=== PATIENT | female | born 1970 | race Caucasian/White ===

== ENCOUNTER 2025-03-17 08:53 | Outpatient (CLI) | payer BC, SELFPAY ==
[2025-03-17 13:36] LABS: Microscopic, Urine URINE MICROSCOPIC (MICROSCOPIC)
[2025-03-17 14:07] LABS: Hematocrit 39.3 % (37.0-47.0); Hemoglobin 13.0 g/dL (12.2-16.2); Immature Granulocytes % 0.4 %; Mean Corpuscular HGB Conc 33.1 g/dL (31.8-35.4); Mean Corpuscular Hemoglobin 30.3 pg (27.0-31.2); Mean Corpuscular Volume 91.6 fl (81-99); Nucleated Red Blood Cells % 0 %; Platelet Count 285 K/mm3 (142-424); Red Blood Count 4.29 M/mm3 (4.20-5.40); Red Cell Distribution Width-SD 43.4 fL; White Blood Count 5.6 K/mm3 (4.8-10.8)
[2025-03-17 14:39] LABS: Albumin Level 4.4 g/dl (3.5-5.0); Chloride 102 mmol/L (98-107); Potassium 3.9 mmoL/L (3.5-5.1); Sodium 136 mmol/L (136-145)
[2025-03-17 14:41] LABS: Blood Urea Nitrogen 15 mg/dl (7-17); Creatinine,Serum 0.70 mg/dl (0.52-1.04); Estimated Glomerular Filt Rate 88 ml/min (>60); GFR (African American) 106 ML/MIN (>60)
[2025-03-17 14:42] LABS: Alanine Aminotransferase 15 U/L (12-78); Albumin/Globulin Ratio 1.8 (1.1-1.8); Alkaline Phosphatase 83 U/L (38-126); Anion Gap 12.9 mEq/L (5-15); Aspartate Amino Transferase 23 U/L (14-36); Bilirubin,Total 0.7 mg/dl (0.2-1.3); Calcium 8.8 mg/dl (8.4-10.2); Carbon Dioxide 25 mmol/L (22.0-30.0); Cholesterol 228 mg/dl (140-200); Globulin 2.4 g/dL (1.3-3.2); Glucose 103 mg/dl (74-100); HDL Cholesterol 44 mg/dl (40-60); Iron 134 ug/dL (37-170); Magnesium 2.2 mg/dl (1.6-2.3); Phosphorous 3.5 mg/dl (2.5-4.5); Total Protein,Serum 6.8 g/dl (6.3-8.2); Triglycerides 157 mg/dl (30-150)
[2025-03-17 14:57] LABS: 25-OH Vitamin D, Total 34.3 ng/mL (30-100); Free T4 (Free Thyroxine) 0.95 ng/dl (0.78-2.19)
[2025-03-17 15:04] LABS: Total Iron Binding Capacity 262 ug/dL (265-497)
[2025-03-17 15:18] LABS: Thyroid Stimulating Hormone 2.28 uIU/mL (0.465-4.68)
[2025-03-17 15:22] LABS: Ferritin 81.4 ng/ml (11.1-264)
[2025-03-17 15:31] LABS: Hepatitis C Ab Qual. W/ RFX NEGATIVE (Negative)
[2025-03-17 16:22] LABS: Vitamin B12 279 pg/mL (239-931)
[2025-03-17 17:57] LABS: Hemoglobin A1C 5.7 % (4.0-6.0)
[2025-03-17 19:07] LABS: Bilirubin,Urine Negative (Negative); Color,Urine YELLOW (Yellow); Glucose,Urine (UA) Negative (Negative); Ketones,Urine Negative (Negative); Leukocyte Esterase,Urine TRACE (Negative); PH,Urine 6.0 (5.0-8.5); Protein,Urine Negative (Negative); Specific Gravity, Urine 1.020 (1.005-1.030); Urobilinogen,Urine 0.2 EU/dl (0.2)
[2025-03-17 19:24] LABS: Amorphous Sediment,Urine Trace /lpf
--- OUTSIDE RECORDS SUMMARY | 2025-03-18 13:46 | XMS_ITS | Encounter Summary ---
Author Organization Healthcare Address [address] [place] [address] Care Team Providers Care Pinion Polisher Name Role Phone Tamela Roger MD Primary Care Provider Encounter Details Date Type Department Care Team (Late st Contact Info) Description 02/10/2021 Outside Procedure External Location [address] [place] [address] Tamela Roger MD [address] [place] [phone] Social History Tobacco Use Types Packs/Day Years Used Date Smoking Tobacco: Former Smokeless Tobacco: Never PHQ-2 Answer Date Recorded Patient Health Questionnaire-2 Score 0 02/10/2021 Comments Unknown Sex and Gender Information Value Date Recorded Sex Assigned at Not on file Legal Sex Female 8:45 PM EDT Gender Identity Not on file Sexual Orientation Not on file COVID-19 Exposure Response Date Recorded In the last month, have you been in contact with someone who was confirmed or suspected to have Coronavirus / COVID-19? No / Unsure 02/10/2021 9:39 AM EDT documented as of this encounter Functional Status * Over the past 2 weeks, how often have you been bothered by any of the following problems? Question Answer Date of Assessment Author Little interest or pleasure in doing things Not at all 02/10/2021 9:52 AM EDT Brittney Loja Feeling down, depressed, or hopeless Not at all 02/10/2021 9:52 AM EDT Brittney Loja Patient Health Questionnaire -2 Score 0 02/10/2021 9:52 AM EDT Brittney Loja documented as of this encounter Plan of Treatment Upcoming Encounters Date Type Department Care Team (Late st Contact Info) Description 06/17/2025 10:30 AM EST Office Visit [facility] [address] [facility], [address] [place] [address] Nida King W, CALCULATOR OPERATOR [address] [place] [address] documented as of this encounter Procedures Procedure Name Priority Date/Time Associated Diagnosis Comments MAMMOGRAPHY BREAST SCREENING TOMOSYNTHESIS BILATERAL 02/10/2021 12:44 PM EDT documented in this encounter Results * Mammography Breast Screening Tomosynthesis Bilateral (02/10/2021 12:44 PM EDT) Anatomical Region Laterality Modality Breast Bilateral Mammography 02/10/2021 12:4 4 PM EDT Narrative 02/12/2021 6:44 [place] [address] Name: CARMEN VIEIRA Exam Date: 02/10/2021 : 1970 Age 50 Gender: F Physician: ATMELA HORN Facility: [facility] Facility HSV: Outpatient Exam: [facility] MAMMO W/CAD BILAT Bilateral digital screening mammogram with CAD and with breast tomosynthesis Findings: Comparison dates are 10/19/19 and 10/09/18. Tissue is partially dense and partially fatty. There are no new or suspicious densities. There are no clusters of calcifications. There have been no significant changes. Impression: BI-RADS 1, negative. Recommendation is for yearly follow-up mammography. This patient will be sent a letter from the mammography department with their mammography results. Dictated By: SANJU FELIPE Transcribed By: kathie schneider Transcribed On: 02/10/2021 1:53 PM Electronically signed by: SANJU FELIPE 02/12/2021 Thank you for referring CARMEN VIEIRA to [facility]. Legally authenticated by DESTINEE BILLS 2021-02-12 06:30:09 Procedure Note Provider, Orlando Wheeler - 02/12/2021 [id number] [place] [address] Name: CARMEN VIEIRA Exam Date: 02/10/2021 : 1970 Age 50 Gender: F Physician: TAMELA HORN Facility: [facility] Facility HSV: Outpatient Exam: [facility] MAMMO W/CAD BILAT Bilateral digital screening mammogram with CAD and with breasttomosynthesis Findings: Comparison dates are 10/19/19 and 10/09/18. Tissue is partiallydense and partially fatty. There are no new or suspicious densities. There areno clusters of calcifications. There have been no significant changes. Impression: BI-RADS 1, negative. Recommendation is for yearly follow-up mammography. This patient will be sent a letter from the mammography department withtheir mammography results. Dictated By: SANJU FELIPE Transcribed By: kathie schneider Transcribed On: 02/10/2021 1:53 PM Electronically signed by: SANJU FELIPE 02/12/2021 Thank you for referring CARMEN VIEIRA to [facility]. Legally authenticated by DESTINEE BILLS 2021-02-12 06:30:09 Tamela Roger MD IMG BI PROCEDURES Final Result documented in this encounter Visit Diagnoses Not on filedocumented in this encounter Care Teams Pinion Polisher Relationship Specialty Start Date End Date Tamela Roger MD [address] [place] [phone] PCP - General 12/23/20 documented as of this encounter
--- OUTSIDE RECORDS SUMMARY | 2025-03-18 13:46 | XMS_ITS | Clinical Summary ---
Author Organization [facility] Address [address] [place] [address] Care Team Providers Care Child Specialist Name Role Phone Tamela Roger MD Primary Care Provider [phone] Allergies Active Allergy Reactions Criticality Noted Date Comments Lisinopril Cough Low 05/23/2022 Medications loratadine (Claritin) 10 MG tablet Take 1 tablet (10 mg) by mouth 1 (one) time each day. Active simvastatin (Zocor) 20 MG tabletIndications: Mixed hyperlipidemia Take 1 tablet (20 mg) by mouth 1 (one) time each day. 90 tablet 3 08/14/19 25 Active Additional Information Patient taking differently: 40 mgOral Daily, Morning, Reported on 11/13/2024 ergocalciferol 1.25 MG (24293 UT) capsule Take 1 capsule by mouth 1 (one) time per week. 10/27/19 25 Active metoprolol succinate XL (Toprol-XL) 25 MG 24 hr tabletIndications: Frequent PVCs Take 1 tablet by mouth daily. Do not crush or chew. 90 tablet 3 12/22/19 25 026 Active losartan (Cozaar) 25 MG tabletIndications: Essential hypertension, benign Take 1 tablet by mouth daily. 90 tablet 3 12/22/19 25 026 Active Active Problems Problem Noted Date Diagnosed Date Arthrodesis status 06/11/2024 Bilateral foot pain 01/02/2024 Plantar fasciitis of left foot 01/02/2024 Plantar fasciitis of right foot 01/02/2024 Hallux rigidus, acquired, unspecified laterality 01/02/2024 Frequent PVCs 11/29/2022 Routine general medical exam ination at a health care facility 05/23/2022 Mixed hyperlipidemia 05/23/2022 Dry cough 05/23/2022 Hypertension 06/03/2019 Resolved Problems Problem Noted Date Diagnosed Date Resolved Date Palpitations 10/23/2021 05/23/2022 Abnormal mammogram 10/20/2019 Encounters Date Type Department Care Team Description 12/21/2024 [facility] [place] [address], [address] [place] [address] Damaris Barth, RN Frequent PVCs; Essential hypertension, benign from Last 3 Months Immunizations Immunization Administration Dates Next Due Hep B, Adolescent or Pediatric 03/17/2020 Hep B, adult 08/18/2020,04/15/2020,09/30/2015 Influenza, injectable, quadr ivalent, preservative free 07/07/2019 Moderna COVID-19 Vaccine (Re d Cap) 12+ years 12/16/2020,11/18/2020 Tdap 08/18/2020,09/30/2015 Family History Medical History Relation Name Comments Miscarriages / Stillbirths Daughter Tamanna Hyperlipidemia Father Diabetes Maternal Grandfather Joe Ca Hearing loss Maternal Grandfather Joe Ca Heart disease Maternal Grandfather Joe Ca Arthritis Maternal Grandmother Amie Ca Hypertension Mother Miscarriages / Stillbirths Mother's Sister Aunt Gerda Colon cancer Paternal Grandmother Relation Name Status Comments Daughter Tamanna Father Maternal Grandfather Joe Ca Maternal Grandmother Amie Ca Mother Mother's Sister Aunt Gerda Paternal Grandmother Social History Tobacco Use Types Packs/Day Years Used Date Smoking Tobacco: Former Cigarettes Q uit: 08/12/1995 Passive Smoke Exposure: Past Smokeless Tobacco: Never Tobacco Cessation:Counseling Given: Not Answered Alcohol Use Standard Drinks/Week Comments Not Currently 0 (1 standard drink = 0.6 oz pur e alcohol) Humiliation, Afraid, Rape, and Kick questionnair e Answer Date Recorded Within the last year, have y ou been afraid of your partner or ex-partner? No 10/12/2023 Within the last year, have y ou been humiliated or emotionally abused in other ways by your partner or ex-partner? No Within the last year, have y ou been kicked, hit, slapped, or otherwise physically hurt by your partner or ex-partner? No 10/12/2023 Within the last year, have y ou been raped or forced to have any kind of sexual activity by your partner or ex-partner? No 10/12/2023 PHQ-2 Answer Date Recorded Patient Health Questionnaire-2 Score 0 11/13/2024 Hunger Vital Sign Answer Date Recorded Within the past 12 months, y ou worried that your food would run out before you got the money to buy more. Never true 10/12/19 24 Within the past 12 months, t he food you bought just didn't last and you didn't have money to get more. Never true 10/12/2023 PRAPARE - Transportation Answer Date Re corded In the past 12 months, has l ack of transportation kept you from medical appointments or from getting medications? No 09/2023 In the past 12 months, has l ack of transportation kept you from meetings, work, or from getting things needed for daily living? No 10/12/2023 Housing Stability Vital Sign Answer Yazan e Recorded In the last 12 months, was t here a time when you were not able to pay the mortgage or rent on time? No 10/12/2023 In the last 12 months, how many places have you lived? 2 10/12/2023 In the last 12 months, was t here a time when you did not have a steady place to sleep or slept in a alf (including now)? No 10/12/2023 PHQ-9 Answer Date Recorded Patient Health Questionnaire-9 Score 0 11/13/2024 Utilities Answer Date Recorded In the past 12 months has th e electric, gas, oil, or water company threatened to shut off services in your home? No 10/12/2023 PHQ-2A Answer Date Recorded Patient Health Questionnaire-2 Score 0 10/19/2022 Comments No Sex and Gender Information Value Date Recorded Sex Assigned at Not on file Legal Sex Female 8:45 PM EDT Gender Identity Not on file Sexual Orientation Not on file Last Filed Vital Signs Vital Sign Reading Time Taken Comments Blood Pressure 128/84 11/13/2024 9:27 AM EDT Pulse 87 11/13/2024 9:27 AM EDT Temperature 36.8 C (98.3 F) 07/16/2024 10:57 AM EST Respiratory Rate 16 05/13/2024 4:05 PM EDT Oxygen Saturation 99% 08/14/2024 2:14 PM EST Inhaled Oxygen Concentration - - Weight 75.8 kg (167 lb) 11/13/2024 9:27 AM EDT Height 160 cm (5' 3 ) 11/13/2024 9:27 AM EDT Body Mass Index 29.58 11/13/2024 9:27 AM EDT Plan of Treatment Upcoming Encounters Date Type Department Care Team (Late st Contact Info) Description 06/17/2025 10:30 AM EST Office Visit [facility] [place] [address], [address] [place] [address] Nida King, BROADCAST METEOROLOGIST [address] [place] [address] Health Maintenance Due Date Last Done Comments [facility]-HIV Screening 1972 [facility]-Hepatitis C Screening 1972 [facility]-Infant/Child/Adol SDOH Screenings 1972 [facility]- SDOH Screenings 1990 [facility]-Adult SDOH Screenings 1990 CT Colonography 2017 Colonoscopy 2017 FIT 2017 FOBT 2017 Sigmoidoscopy 2017 [facility]-Pneumococcal Vaccine: 50+ Years (1 of 1 - PCV) 2022 [facility]-Pap Smear 02/11/2024 02/10/2021, 09/12, 12/12/2015 [id number] Vaccine ( season) 2024 12/16/2020, 11/18/2020 [facility]-Influenza Vaccine (#1) 2025 07/07/2019 [facility]-Breast Cancer Screening 06/24/202506/12, 03/12/2022, 02/10/2021, Additional history exists [facility]-Depression Screening 11/13/2025 11/13/2024, 0 11/2024 [facility]-Cervical Cancer Screening 02/10/2026 [facility]-HPV/Cotest 02/10/2026 02/10/2021, 09/2020, 09/29/2018, Additional history exists FIT-DNA 10/30/2026 10/31/2023, 09/09/2020 [facility]-Colorectal Cancer Screening 10/30/2026 [facility]-DTaP,Tdap,and Td Vaccines (3 - Td or Tdap) 08/18/2030 08/18/2020, 09/30/2015 [facility]-Hepatitis B Vaccines Completed 021, 04/15/2020, 03/17/2020, Additional history exists [facility]-Zoster Vaccines Completed 08/03/2024, [facility]-Diabetes: Hemoglobin A1C Discontinued 10/21/2024, 10/16/2023, 05/23/2022, Additional history exists [facility]-Obesity Intervention Completed 025, 08/14/2024, 07/16/2024, Additional history exists HPV Vaccines Aged Out No longer eligi ble based on patient's age to complete this topic [facility]-HIB Vaccines Aged Out No longer e ligible based on patient's age to complete this topic [facility]-Hepatitis A Vaccines Aged Out No longer eligible based on patient's age to complete this topic [facility]-IPV Vaccines Aged Out No longer e ligible based on patient's age to complete this topic [facility]-Rotavirus Vaccines Aged Out No lo nger eligible based on patient's age to complete this topic Medical Devices Implanted Type Area Commercial Administrator Device Identifier Shelf Expiration Date Model / Serial / Lot Mtp Plate 0deg Medium Left - Sn/A - [id number] Implanted:Qty: 1 on 05/13/2024 by Eduardo Edge DPM at [facility] Left: [id number] 02 / N/A / Screw 3.5mm Minimonst Erin Shrtthrd Hdless 24mm - Sn/A - [id number] Implanted:Qty: 1 on 05/13/2024 by Eduardo Edge DPM at [facility] Left: [id number] / N/A / Screw 2.7mm R3con Locking Plate 12mm - Sn/A - [id number] Implanted:Qty: 1 on 05/13/2024 by Eduardo Edge DPM at [facility] Left: [id number] 12 / N/A / Screw 2.7mm R3con Locking Plate 18mm - Sn/A - [id number] Implanted:Qty: 1 on 05/13/2024 by Eduardo Edge DPM at [facility] Left: [id number] 18 / N/A / Screw 2.7mm R3con Locking Plate 16mm - Sn/A - [id number] Implanted:Qty: 1 on 05/13/2024 by Eduardo Edge DPM at [facility] Left: [id number] 16 / N/A / Screw 3.5mm R3con Nonlocking Plate 16mm - Sn/A - [id number] Implanted:Qty: 1 on 05/13/2024 by Eduardo Edge DPM at [facility] Left: [id number] 16 / N/A / Screw 3.5mm R3con Locking Plate 18mm - Sn/A - [id number] Implanted:Qty: 2 on 05/13/2024 by Eduardo Edge, DPM at [facility] Left: [id number] 18 / N/A / Procedures Procedure Name Priority Date/Time Associated Diagnosis Comments LAB COLOGUARD COLON CANCER SCREEN Routine 10/31/2023 9:50 PM EDT Screen for colon cancer HEMOGLOBIN A1C Routine 10/16/2023 8:38 AM EST Routine general medical examination at a [facility] care facility MAMMOGRAPHY BREAST SCREENING TOMOSYNTHESIS BILATERAL 06/24/2023 8:25 AM EST PAP TEST - CYTOLOGY Routine 02/10/2021 1 0:52 AM EDT Well woman exam from Last 3 Months or Most Recently Relevant to Health Maintenance Results * Cologuard?? colon cancer screening (10/31/2023 9:50 PM EDT) Cologuard Negative Negative 11/06/2023 6:37 PM EDT [facility] (CLIA #:[id number]) Comment: NEGATIVE TEST RESULT. A negative Cologuard result indicates a low likelihood that a colorectal cancer (CRC) or advanced adenoma (adenomatous polyps with more advanced pre-malignant features) is present. The chance that a person with a negative Cologuard test has a colorectal cancer is less than 1 in 1500 (negative predictive value >99.9%) or has an advanced adenoma is less than 5.3% (negative predictive value 94.7%). These data are based on a prospective cross-sectional study of 10,000 individuals at average risk for colorectal cancer who were screened with both Cologuard and colonoscopy. (Yumiko Grant et al, N Engl J Med 2014;370(14):7328-8630) The normal value (reference range) for this assay is negative. COLOGUARD RE-SCREENING RECOMMENDATION: Periodic colorectal cancer screening is an important part of preventive healthcare for asymptomatic individuals at average risk for colorectal cancer. Following a negative Cologuard result, the [place] Cancer Society and U.S. Multi-Society Task Force screening guidelines recommend a Cologuard re-screening interval of 3 years. References: [place] [employer] Guideline for Colorectal Cancer Screening: https://www.cancer.org/cancer/wdouf-pxkgdp-qhzbce/zjbnpiwhf-oveglspsi-qdjeouy/ac s-rec ommendations.html.; Jesse MONSON, Yesenia MCCORMACK, Yusef FarahK, Colorectal Cancer Screening: Recommendations for Physicians and Patients from the U.S. Multi-Society Task Force on Colorectal Cancer Screening , Am J Gastroenterology 2017; 112:8328-0141. TEST DESCRIPTION: Composite algorithmic analysis of stool DNA-biomarkers with hemoglobin immunoassay. Quantitative values of individual biomarkers are not reportable and are not associated with individual biomarker result reference ranges. Cologuard is intended for colorectal cancer screening of adults of either sex, 45 years or older, who are at average-risk for colorectal cancer (CRC). Cologuard has been approved for use by the U.S. FDA. The performance of Cologuard was established in a cross sectional study of average-risk adults aged 50-84. Cologuard performance in patients ages 45 to 49 years was estimated by sub-group analysis of near-age groups. Colonoscopies performed for a positive result may find as the most clinically significant lesion: colorectal cancer [4.0%], advanced adenoma (including sessile serrated polyps greater than or equal to 1cm diameter) [20%] or non- advanced adenoma [31%]; or no colorectal neoplasia [45%]. These estimates are derived from a prospective cross-sectional screening study of 10,000 individuals at average risk for colorectal cancer who were screened with both Cologuard and colonoscopy. (Yumiko Grant et al, N Engl J Med 2014;370(14):7045-5043.) Cologuard may produce a false negative or false positive result (no colorectal cancer or precancerous polyp present at colonoscopy follow up). A negative Cologuard test result does not guarantee the absence of CRC or advanced adenoma (pre-cancer). The current Cologuard screening interval is every 3 years. ([place] [employer] Society and U.S. Multi-Society Task Force). Cologuard performance data in a 10,000 patient pivotal study using colonoscopy as the reference method can be accessed at the following location: www.[employer]/results. Additional description of the Cologuard test process, warnings and precautions can be found at www.[employer].com. Stool specimen (specimen) 10/31/2023 9:50 PM EDT 11/02/2023 12:52 PM EDT us Tamela Roger MD LAB MOLECULAR DIAGNOSTICS [place] Final Result [facility] (CLIA #:[id number]) [address] [place] [address], * (ABNORMAL) Hemoglobin A1c (10/16/2023 8:38 AM EST) Hemoglobin A1c 5.8(H) <5.7 % 10/16/2023 4:01 PM EST [facility] Blood Venous blood specimen / Unknown Venipuncture / Unknown 10/16/2023 8:38 AM EST 10/16/2023 8:38 AM EST Narrative [facility] - 10/16/2023 4:01 PM EST HA1C Interpretive Data: Diagnosis of Diabetes: Diabetic > or = 6.5% Pre-diabetic 5.7 to 6.4% Non-diabetic < or = 5.6% Glycemic Targets for Type I and Type II Diabetics: Non- Adults <7.0% Adults <6.0% Children and Adolescents <7.5% Source: [place] [employer] Association. Standards of medical care in diabetes,2017. Diabetes Care.2017:40 (suppl 1):S1-S135. HbA1c assay performed by an ion-exchange chromatography method that is certified traceable to the DCCT. us Tamela Roger MD LAB BLOOD ORDERABLES Final Res ult Performing Organization Address City/State/[facility] [[email or web address]] Co de Phone Number [facility] [address] [place] [address] * Mammography Breast Screening Tomosynthesis Bilateral (06/24/2023 8:25 AM EST) Anatomical Region Laterality Modality Breast Bilateral Mammography 06/24/2023 8:25 AM EST Narrative 06/24/2023 5:22 PM EST [place] [id number] [place] [address] Name: CARMEN LEYVA Exam Date: 06/24/2023 : 1970 Age 52 Gender: F Physician: TAMELA HORN Facility: [facility] Facility HSV: Outpatient Exam: SHIRLEY SCRN MAMMO W/CAD BILAT MAMMOGRAM SCREENING BILATERAL HISTORY: Routine screening exam COMPARISON: March 12, 2022, February 10, 2021 TECHNIQUE: Standard digital 2-D views with 3-D tomosynthesis DENSITY: There are scattered fibroglandular densities of the breasts. FINDINGS: Benign calcifications. Increasing inferior medial right breast focal asymmetry. Scattered areas of focal asymmetry are noted. No suspicious calcifications or architectural distortion is present. IMPRESSION: Slightly increasing inferior medial right breast focal asymmetry. Additional spot compression views and possible ultrasound is recommended. BI-RADS 0: Incomplete, needs additional imaging evaluation RECOMMENDATION: Additional right breast imaging is required. Routine screening mammography for the left breast. CAD was utilized during interpretation. The patient will be sent a letter from the mammography department with their mammography results. Dictated By: Dahlia Jung Transcribed By: Dahlia Brandon Transcribed On: 06/24/2023 12:48 PM Electronically signed by: Dahlia Jung 06/24/2023 Thank you [facility]. Legally authenticated by PAVEL MARRUFO 2023-06-24 12:48:29 Procedure Note Provider, [facility] - 06/24/2023 [place] [address] Name: CARMEN LEYVA Exam Date: 06/24/2023 : 1970 Age 52 Gender: F Physician: TAMELA HORN Facility: [facility] Facility HSV: Outpatient Exam: SHIRLEY SCRN MAMMO W/CAD BILAT MAMMOGRAM SCREENING BILATERAL HISTORY: Routine screening exam COMPARISON: March 12, 2022, February 10, 2021 TECHNIQUE: Standard digital 2-D views with 3-D tomosynthesis DENSITY: There are scattered fibroglandular densities of the breasts. FINDINGS: Benign calcifications. Increasing inferior medial right breastfocal asymmetry. Scattered areas of focal asymmetry are noted. No suspicious calcifications or architectural distortion is present. IMPRESSION: Slightly increasing inferior medial right breast focalasymmetry. Additional spot compression views and possible ultrasound isrecommended. BI-RADS 0: Incomplete, needs additional imaging evaluation RECOMMENDATION: Additional right breast imaging is required. Routinescreening mammography for the left breast. CAD was utilized during interpretation. The patient will be sent a letter from the mammography department withtheir mammography results. Dictated By: Dahlia Jung Transcribed By: Dahlia Brandon Transcribed On: 06/24/2023 12:48 PM Electronically signed by: Dahlia Jung 06/24/2023 Thank you for referring [facility]. Legally authenticated by PAVEL MARRUFO 2023-06-24 12:48:29 us Tamela Roger MD IMG BI PROCEDURES Final Result * Pap Test (02/10/2021 10:52 AM EDT) Case Report Cytology Case: [id number] Authorizing Provider: Tamela Loza MD Collected: 02/10/2021 1052 Ordering Location: General acute hospital Received: 02/10/2021 1056 Medicine First Screen: Tati Pickering, CT Rescreen: Iman Bateman, BIPIN Specimen: ThinPrep Pap Test, Liquid-Based Cervical/Vaginal, CERVICAL/VAGINAL 02/16/2021 2:20 PM EDT [facility] Interpretation NEGATIVE FOR INTRAEPITHELIAL LESION OR MALIGNANCY 02/16/2021 2:20 PM EDT [facility] at 1420 EDT Other Findings Inflammatory change. Shift in aditi suggestive of bacterial vaginosis. 02/16/2021 2:20 PM EDT [facility] Specimen Adequacy Satisfactory for evaluation; endocervical/berry sformation zone component present. Slide scanned and imaged by [email or web address] ThinPrep Imaging System with manual review of all selected roldan. Slide imaged and selected 22 roldan reviewed then full manual screening. 02/16/2021 2:20 PM EDT [facility] Cervical cytology is a screening test primarily for squamous cancers and precursors and has associated false negative and positive results. New technologies such as liquid based sampling may decrease but will not eliminate all false negative results. Regular screening and follow-up of unexplained clinical signs and symptoms are recommended to minimize false negative results. Please see the ASCCP website (www.asccp.org)fo r followup recommendations. If HPV testing was requested, correlation with the results is suggested (please call Microbiology at [phone] for results). 02/16/2021 2:20 PM EDT [facility] Menstrual Status Cyclic 02/17/20 2:20 PM EDT [facility] History of Hysterectomy Not Applicable 02/16/2021 2:20 PM EDT [facility] Contraceptive History Not Applicable 02/16/2021 2:20 PM EDT [facility] Last Menstrual Period 01/27/2021 02/16/2021 2:20 PM EDT [facility] Screening Type Routine Screen 2020 2:20 PM EDT [facility] High Risk? No 02/16/2021 2:20 PM EDT [facility] HPV Testing Requested? Request HPV Testing Regardless of Pap Test Findings 02/16/2021 2:20 PM EDT [facility] Previous Cancer History No 02/16/2021 2:20 PM EDT [facility] Swab Vaginal and cervical cytologic material / Unknown Non-blood Collection / Unknown 02/10/2021 10:52 AM EDT 02/10/2021 10:56 AM EDT Tamela Roger MD LAB CYTOLOGY ORDERABLES Final Result Performing Organization Address City/State/[facility] [[email or web address]] Co de Phone Number [facility] [address] [place] [phone] from Last 3 Months or Most Recently Relevant to Health Maintenance Insurance [employer]THE[employer] Care Teams Child Specialist Relationship Specialty Start Date End Date Tamela Roger MD [address] [place] [phone] [facility] - General 12/23/20
--- OUTSIDE RECORDS SUMMARY | 2025-03-18 13:46 | XMS_ITS | Encounter Summary ---
Author Organization [facility] Address [address] [place] [address] Care Team Providers Care Spray Gun Repairer Helper Name Role Phone Tamela Roger MD Primary Care Provider [phone] Encounter Details Date Type Department Care Team (Late Contact Info) Description 03/12/2022 Outside Procedure External Location [address] [place] [address] Tamela Roger MD [address] [place] [phone] Social History Tobacco Use Types Packs/Day Years Used Date Smoking Tobacco: Former Cigarettes Q uit: 1999 Smokeless Tobacco: Never PHQ-2 Answer Date Recorded Patient Health Questionnaire-2 Score 0 02/10/2021 Comments Unknown Sex and Gender Information Value Date Recorded Sex Assigned at Not on file Legal Sex Female 8:45 PM EDT Gender Identity Not on file Sexual Orientation Not on file documented as of this encounter Plan of Treatment Upcoming Encounters Date Type Department Care Team (Late Contact Info) Description 06/17/2025 10:30 AM EST Office Visit [facility] [address], [address] [place] [address] Nida King, DIRECTOR OF HOME HEALTH SERVICES [address] [place] [address] documented as of this encounter Procedures Procedure Name Priority Date/Time Associated Diagnosis Comments MAMMOGRAPHY BREAST SCREENING TOMOSYNTHESIS BILATERAL 03/12/2022 8:07 AM EDT documented in this encounter Results * Mammography Breast Screening Tomosynthesis Bilateral (03/12/2022 8:07 AM EDT) Anatomical Region Laterality Modality Breast Bilateral Mammography 03/12/2022 8:07 AM EDT Narrative 03/15/2022 4:48 [place] [address] Name: CARMEN LEYVA Exam Date: 03/12/2022 : 1970 Age 51 Gender: F Physician: TAMELA HORN Facility: [facility] Facility HSV: Outpatient Exam: SHIRLEY SCRN MAMMO W/CAD BILAT MAMMOGRAM SCREENING BILATERAL WITH TOMOSYNTHESIS HISTORY: Routine screening exam COMPARISON: February 10, 2021 FINDINGS: Standard views were obtained. There are scattered fibroglandular densities. Benign-appearing calcifications are present. No mass, suspicious calcifications or architectural distortion is present. IMPRESSION: No mammographic evidence of malignancy. BI-RADS 2: Benign RECOMMENDATION: Annual mammography CAD was utilized during interpretation. The patient will be sent a letter from the mammography department with their mammography findings. Dictated By: Remberto Johnston Transcribed By: Remberto Johnston Transcribed On: 03/15/2022 4:36 PM Electronically signed by: Remberto Johnston 03/15/2022 Thank you for referring CARMEN LEYVA to [facility]. Legally authenticated by POPE REMBERTO Solo 2022-03-15 16:36:50 Procedure Note Provider, [facility] - 03/15/2022 [place] [address] Name: CARMEN LEYVA Exam Date: 03/12/2022 : 1970 Age 51 Gender: F Physician: TAMELA HORN Facility: [facility] Facility HSV: Outpatient Exam: SHIRLEY SCRN MAMMO W/CAD BILAT MAMMOGRAM SCREENING BILATERAL WITH TOMOSYNTHESIS HISTORY: Routine screening exam COMPARISON: February 10, 2021 FINDINGS: Standard views were obtained. There are scatteredfibroglandular densities. Benign-appearing calcifications are present. No mass,suspicious calcifications or architectural distortion is present. IMPRESSION: No mammographic evidence of malignancy. BI-RADS 2: Benign RECOMMENDATION: Annual mammography CAD was utilized during interpretation. The patient will be sent a letter from the mammography department withtheir mammography findings. Dictated By: Remberto Johnston Transcribed By: Remberto Johnston Transcribed On: 03/15/2022 4:36 PM Electronically signed by: Remberto Johnston 03/15/2022 Thank you for referring CARMEN LEYVA to [facility]. Legally authenticated by POPE REMBERTO Solo 2022-03-15 16:36:50 Tamela Roger MD IMG BI PROCEDURES Final Result documented in this encounter Visit Diagnoses Not on filedocumented in this encounter Care Teams Spray Gun Repairer Helper Relationship Specialty Start Date End Date Tamela Roger MD [address] [place] [id number] PCP - General 12/23/20 documented as of this encounter
--- OUTSIDE RECORDS SUMMARY | 2025-03-18 13:46 | XMS_ITS | Clinical Summary ---
Author Organization [facility] Address [address] [place] [address] Care Team Providers Care Patient Resource Specialist Name Role Phone Fernanda Donohue APRN Primary Care Provider [phone] Allergies Active Allergy Reactions Criticality Noted Date Comments Lisinopril Cough Low 05/23/2022 Medications loratadine (Claritin) 10 MG tablet Take 10 mg by mouth 1 (one) time each day. Active losartan (Cozaar) 25 MG tablet Take 25 mg by mouth 1 (one) time each day. 08/14/2024 6 Active metoprolol succinate XL (Toprol-XL) 100 MG 24 hr tablet Take 100 mg by mouth 1 (one) time each day. 08/14/2024 6 Active simvastatin (Zocor) 40 MG tablet Take 1 tablet by mouth every night for 180 days. 90 tablet 1 12/21/2024 5 Active ergocalciferol (Vitamin D2) 1.25 MG (51974 UT) capsuleIndicati ons:Vitamin D deficiency, not otherwise specified TAKE 1 CAPSULE BY MOUTH ONCE WEEKLY 13 capsule 3 02/08/2025 Active Active Problems Problem Noted Date Diagnosed Date Obesity, class 1 08/19/2024 Arthrodesis status 06/11/2024 Acquired hallux rigidus 01/02/2024 Pain in both feet 01/02/2024 Plantar fascial fibromatosis 01/02/2024 Multiple premature ventricular complexes 023 Dry cough 05/23/2022 Mixed hyperlipidemia 05/23/2022 Routine general medical exam ination at a health care facility 05/23/2022 Hypertension 06/03/2019 Encounters Date Type Department Care Team Description 02/06/2025 Refill [facility] - [address] [place] [address] Fernanda Donohue APRN Vitamin D deficiency, not otherwise specified 12/21/2024 Orders Only [facility] - [address] [place], [place] [id number] Fernanda Donohue APRN Vitamin D deficiency, not otherwise specified; Mixed hyperlipidemia from Last 3 Months Immunizations Immunization Administration Dates Next Due Hep B, Adolescent or Pediatr ic (Engerix B, Recombivax) 03/17/2020 Hep B, adult (Engerix b, Recombivax) 08/18/2020, 04/15/2020,09/30/2015 Influenza, quadrivalent PF ( fluarix, Afluria, Flulaval, Fluzone) 07/07/2019 Tdap 08/18/2020,09/30/2015 Zoster, Recombinant 08/03/2024,06/05/2024 Family History Medical History Relation Name Comments Miscarriages / Stillbirths Daughter Tamanna Simmons Cancer Father's Sister Ana Paez Diabetes Maternal Grandfather Joe Ca Heart disease Maternal Grandfather Joe Ca Hypertension Mother Tamica Paez Hearing loss Paternal Grandfather oJe Ca Relation Name Status Comments Hair Simmons Father's Sister Ana Paez Maternal Grandfather Joe Ca Mother Tamica Paez Paternal Grandfather Joe Ca Social History Tobacco Use Types Packs/Day Years Used Date Smoking Tobacco: Former Cigarettes Smokeless Tobacco: Never Tobacco Cessation:Counseling Given: Not Answered Alcohol Use Standard Drinks/Week Comments Not Currently 0 (1 standard drink = 0.6 oz pur e alcohol) [facility] Utilities Answer Date Recorded In the past 12 months has [employer], gas, oil, or water [employer]tr[employer] threatened to shut off services in your home? No 10/10/2024 Overall Financial Resource Strain (CARDIA) Answe r Date Recorded How hard is it for you to pa y for the very basics like food, housing, medical care, and heating? Not hard at all 10/10/2024 Hunger Vital Sign Answer Date Recorded Within the past 12 months, y ou worried that your food would run out before you got the money to buy more. Never true 10/11/19 25 Within the past 12 months, t he food you bought just didn't last and you didn't have money to get more. Never true 10/10/2024 PRAPARE - Transportation Answer Date Re corded In the past 12 months, has l ack of transportation kept you from medical appointments or from getting medications? No 08/2024 In the past 12 months, has l ack of transportation kept you from meetings, work, or from getting things needed for daily living? No 10/10/2024 Housing Stability Vital Sign Answer Yazan e Recorded In the last 12 months, was t here a time when you were not able to pay the mortgage or rent on time? No 10/10/2024 In the past 12 months, how m any times have you moved where you were living? 0 10/10/2024 At [facility] time in the [facility], were you homeless or living in a chcf (including now)? No 10/10/2024 Depression Answer Date Recorded PHQ-2 Total Score 0 10/10/2024 Interpersonal Safety Answer Date Record ed How often does anyone, jeb henry family and friends, physically hurt you? Never 10/10/2024 How often does anyone, jeb henry family and friends, threaten you with harm? Never 10/10/2024 Comments Unknown Sex and Gender Information Value Date Recorded Sex Assigned at Not on file Legal Sex Female 12:20 PM EST Gender Identity Not on file Sexual Orientation Not on file Last Filed Vital Signs Vital Sign Reading Time Taken Comments Blood Pressure 120/84 10/12/2024 9:02 AM EST Pulse 73 10/12/2024 9:02 AM EST Temperature 37 C (98.6 F) 10/12/2024 9:02 AM EST Respiratory Rate - - Oxygen Saturation 96% 10/12/2024 9:02 AM EST Inhaled Oxygen Concentration - - Weight 77.8 kg (171 lb 9.6 oz) 10/12/2024 9:02 A M EST Height 160 cm (5' 3 ) 10/12/2024 9:02 AM EST Body Mass Index 30.4 10/12/2024 9:02 AM EST Plan of Treatment Health Maintenance Due Date Last Done Comments CT Colonography 1970 Colonoscopy 1972 FIT 1972 FOBT 1970 Sigmoidoscopy 1970 MMR Vaccines (1 of 1 - Standard series) 1973 Hepatitis B Screening 1990 Pneumococcal Vaccine: 50+ Years (1 of 1 - PCV) 2022 Mammogram 06/24/2024 06/24/2023, 06/12, 03/12/2022, Additional history exists Influenza Vaccine (#1) 2025 07/07/2019 Colorectal Cancer Screening 11/02/2026 FIT-DNA (Cologuard) 11/02/2026 11/03/2023, Pap Smear 10/13/2027 10/12/2024, 02/10/2021 Diabetes Screening 10/22/2027 10/21/2024, 0 10/21/2024, 10/16/2023, Additional history exists Cervical Cancer Screening 10/12/2029 HPV/Cotest 10/12/2029 10/12/2024 Lipid Panel 10/21/2029 10/21/2024, 10/16/2023 DTaP/Tdap/Td Vaccines (3 - Td or Tdap) 08/18/2030 08/18/2020, 09/30/2015 COVID-19 Vaccine (3 - season) 2030 12/16/2020, 11/18/2020 Postponed from 04/12/2024 (Patient Refused) Hepatitis B Vaccines Completed 08/18/2020, 04/15/2020, 03/17/2020, Additional history exists Zoster Vaccines Completed 08/03/2024, 06/05/2024 Depression Risk Screening Completed 10/10/2024 SDOH Screening Completed 10/10/2024 HIV Screening Addressed 10/12/2024 (Galina ent Refused) Overridden with the intention of not completing the topic Hepatitis C Screening Addressed 10/12/2024 (Patient Refused) Overridden with the intention of not completing the topic HIB Vaccines Aged Out No longer eligi ble based on patient's age to complete this topic HPV Vaccines Aged Out No longer eligi ble based on patient's age to complete this topic Hepatitis A Vaccines Aged Out No long er eligible based on patient's age to complete this topic IPV Vaccines Aged Out No longer eligi ble based on patient's age to complete this topic Meningococcal B Vaccine Aged Out No l onger eligible based on patient's age to complete this topic Meningococcal Vaccine Aged Out No amado junito eligible based on patient's age to complete this topic Rotavirus Vaccines Aged Out No longer eligible based on patient's age to complete this topic Procedures Procedure Name Priority Date/Time Associated Diagnosis Comments CMP COMPREHENSIVE METABOLIC PANEL Routine 10/21/2024 9:56 AM EDT Hypertension LIPID PANEL Routine 10/21/2024 9:56 AM EDT Mixed hyperlipidemia Obesity, class 1 THINPREP IMAGING PAP AND HPV MRNA E6/E7 REFLEX HPV 16, 18/45 Routine 10/12/2024 4:12 PM EST Encounter for screening for malignant neoplasm of cervix from Last 3 Months or Most Recently Relevant to Health Maintenance Results * (ABNORMAL) Lipid panel (10/21/2024 9:56 AM EDT) TRIGLYCERIDES 154(H) <=149 mg/dL [facility] CHOLESTEROL, TOTAL 232(H) <=199 mg/dL [facility] HDL CHOLESTEROL 47 40 - 60 mg/dL [facility] LDL-CHOLESTEROL 154.2 <=188.0 mg/dL [facility] CHOL/HDLC RATIO 4.94(H) 0.00 - 4.49 Ratio [facility] CHOLESTEROL VLDL CALCULATION 31 mg/dL [facility] LDL/HDL RATIO 3.28 Ratio [facility] Blood Venous blood specimen / Unknown 10/21/2024 9:56 AM EDT 10/21/2024 2:18 PM EDT Narrative Resulting Agency Comment Performing Organization Information: Site ID: [id number] Name: [facility] Address: [address] [place] [phone] Director: Dr. Federico Chicas us Fernanda Donohue APRN LAB BLOOD ORDERABLES Final Res ult [facility] [address] [place] [address], * (ABNORMAL) Comprehensive metabolic panel (10/21/2024 9:56 AM EDT) GLUCOSE 119(H) 74 - 109 mg/dL [facility] UREA NITROGEN (BUN) 14 7 - 25 mg/dL [facility] CREATININE 0.59(L) 0.60 - 1.20 mg/dL [facility] BUN/CREATININE RATIO 23.7(H) 6.0 - 22.0 [facility] SODIUM 139 136 - 145 mmol/L [facility] POTASSIUM 4.2 3.5 - 5.1 mmol/L [facility] CHLORIDE 103 98 - 110 mmol/L [facility] CARBON DIOXIDE 28 21 - 31 mmol/L [facility] CALCIUM 9.2 8.6 - 10.2 mg/dL [facility] PROTEIN, TOTAL 6.5 6.4 - 8.9 Gram/dL [facility] ALBUMIN 4.4 3.5 - 5.2 Gram/dL [facility] GLOBULIN 2 Gram/dL [facility] A/G Ratio 2.1(H) 1.0 - 1.7 [facility] BILIRUBIN, TOTAL 0.7 0.3 - 1.0 mg/dL [facility] ALKALINE PHOSPHATASE 66 34 - 104 Units/Lite r [facility] AST 18 13 - 39 Units/Lite r [facility] ALT 22 <=24 Units/Lite r [facility] EGFR 108 >=60 mL/min/1.7 3m2 [facility] Comment: eGFR calculation performed using the CKD-EPI 2020 equation (race variable excluded) Blood Venous blood specimen / Unknown 10/21/2024 9:56 AM EDT 10/21/2024 2:18 PM EDT Narrative Resulting Agency Comment Performing Organization Information: Site ID: [id number] Name: [facility] Address: [address] [place] [phone] Director: Dr. Federico Chicas us Fernanda Donohue APRN LAB BLOOD ORDERABLES Final Res ult [facility] [address] [place] [address], * THINPREP IMAGING PAP AND HPV MRNA E6/E7 REFLEX HPV 16, 18/45 (10/12/2024 4:12 PM EST) Clinical Information [facility] Comment:None given LMP [facility] Comment:NONE GIVEN Pap [facility] Comment:NONE GIVEN Core Biopsy [facility] Comment:NONE GIVEN Source [facility] Comment:Vagina Specimen Adequacy [facility] Comment: Satisfactory for evaluation. Endocervical/transformation zone component absent. Age and/or menstrual status not provided Reason for revised report: Per discussion with client. => REVISED: Change in test result(s) PLEASE DISREGARD PREVIOUSLY REPORTED INFORMATION BELOW: (The information below was previously reported on 10/14/2024 at 4:46 PM) STATEMENT OF ADEQUACY: Specimen processed and examined, but unsatisfactory for evaluation due to an insufficient number of squamous cells. Interpretation [facility] Comment: Cytology Results: Negative for intraepithelial lesion or malignancy. Reason for revised report: Per discussion with client. => REVISED: Change in test result(s) PLEASE DISREGARD PREVIOUSLY REPORTED INFORMATION BELOW: (The information below was previously reported on 10/14/2024 at 4:46 PM) INTERPRETATION/RESULT: Cytology Results: Unable to provide interpretation due to unsatisfactory specimen adequacy. Comment [facility] Comment: This Pap test has been evaluated with computer assisted technology. Suggest clinical correlation and follow-up as clinically appropriate Microscopic features present suggestive of an interfering substance, including cellular debris, mucus, or possible lubricant (patient or provider use). Use of lubricant is not recommended. CBN, CT(ASCP) 10/20/2024 CT Screening location: [place] [address] => ADDENDUM: New or added information. ELECTRONIC PARTS SALESPERSON [facility] Comment: OFC, CT(ASCP) CT Screening Location: [place] [address] REVIEW ELECTRONIC PARTS SALESPERSON: [facility] Comment: DXP, CT(ASCP) CT Screening location: [place] [address] COMMENT [facility] Comment: EXPLANATORY NOTE: The Pap is a screening test for cervical cancer. It is not a diagnostic test and is subject to false negative and false positive results. It is most reliable when a satisfactory sample, regularly obtained, is submitted with relevant clinical findings and history, and when the Pap result is evaluated along with historic and current clinical information. HPV MRNA E6/E7 Not Detected Not Detected [facility] Comment: Methodology: Broodmare Foreman-Mediated Amplification This assay detects E6/E7 viral messenger RNA (mRNA) from 14 high-risk HPV types (16,18,31,33,35,39,45,51,52,56,58,59,66,68). Cervical sources are required for HPV testing. If a vaginal source from a patient who has had a total hysterectomy with removal of cervix was submitted, please contact the testing laboratory for alternative testing options. For additional information, please refer to http://education.Numonyx/faq/PVZ667b3 (This link if provided for information/ educational purposes only.) Swab Cervical swab / Unknown 10/12/2024 4:12 PM EST 10/13/2024 6:29 AM EST Narrative Resulting Agency Comment Performing Organization Information: Site ID: [place] Name: [facility] Address: [address] [place] [phone] Director: Angel Clark Fernanda Donohue APRN LAB CYTOLOGY ORDERABLES Edited Result [place] [address], from Last 3 Months or Most Recently Relevant to Health Maintenance Insurance ANTH Care Teams Patient Resource Specialist Relationship Specialty Start Date End Date Fernanda Donohue APRN [address] [place] [address] [address] [place] [phone] PCP - General Family Medicine 08/19/24
--- OUTSIDE RECORDS SUMMARY | 2025-03-18 13:46 | XMS_ITS | Encounter Summary ---
Author Organization [facility] Address [address] [place] [address] Care Team Providers Care Technical Sales Support Specialist Name Role Phone Fernanda Donohue APRN Primary Care Provider Reason for Visit * Reason Comments Med Refill Encounter Details Date Type Department Care Team ([facility] st Contact Info) Description 02/06/2025 Refill [facility] - Primary Care [address] [place] [address] [address] [place] [address] Fernanda Donohue APRN [address] [place] [address] [address] [place] [address] Vitamin D deficiency, not otherwise specified Social History Tobacco Use Types Packs/Day Years Used Date Smoking Tobacco: Former Cigarettes Smokeless Tobacco: Never Alcohol Use Standard Drinks/Week Comments Not Currently 0 (1 standard drink = 0.6 oz pur e alcohol) [facility] Utilities Answer Date Recorded In the past 12 months has [facility] [employer], gas, oil, or water [employer] threatened to shut off services in your [...] any time in the past 12 m [facility], were you homeless or living in a [facility] (including now)? No 10/10/2024 Depression Answer Date Recorded PHQ-2 Total Score 0 10/10/2024 Interpersonal Safety Answer Date Record ed How often does anyone, inclnick elaine family and friends, physically hurt you? Never 10/10/2024 How often does anyone, inclnick henry family and friends, threaten you with harm? Never 10/10/2024 Comments Unknown Sex and Gender Information Value Date Recorded Sex Assigned at Not on file Legal Sex Female 12:20 PM EST Gender Identity Not on file Sexual Orientation Not on file documented as of this encounter Plan of Treatment Not on file documented as of this encounter Visit Diagnoses Diagnosis Vitamin D deficiency, not otherwise specified documented in this encounter Care Teams Technical Sales Support Specialist Relationship Specialty Start Date End Date Fernanda Donohue APRN [address] [place] [address] [address] [place] [phone] PCP - General Family Medicine 08/19/24 documented as of this encounter
--- OUTSIDE RECORDS SUMMARY | 2025-03-18 13:46 | XMS_ITS | Encounter Summary ---
Author Organization [facility] Address [address] [place] [address] Care Team Providers Care Historical Interpreter Name Role Phone Tamela Roger MD Primary Care Provider [phone] Encounter Details Date Type Department Care Team (Late st Contact Info) Description 06/24/2023 Outside Procedure External Location [address] [place] [address] Tamela Roger MD [address] [place] [phone] Social History Tobacco Use Types Packs/Day Years Used Date Smoking Tobacco: Former Cigarettes 0.3 4 1 996 - 2000 Passive Smoke Exposure: Past Smokeless Tobacco: Never PHQ-2 Answer Date Recorded Patient Health Questionnaire-2 Score 0 10/19/2022 PHQ-2A Answer Date Recorded Patient Health Questionnaire-2 Score 0 10/19/2022 Comments Unknown Sex and Gender Information Value Date Recorded Sex Assigned at Not on file Legal Sex Female 8:45 PM EDT Gender Identity Not on file Sexual Orientation Not on file documented as of this encounter Plan of Treatment Upcoming Encounters Date Type Department Care Team (Late st Contact Info) Description 06/17/2025 10:30 AM EST Office Visit [facility] [place] [address], [address] [place] [address] Nida King, SKIN GRADER [address] [place] [address] documented as of this encounter Procedures Procedure Name Priority Date/Time Associated Diagnosis Comments MAMMOGRAPHY BREAST SCREENING TOMOSYNTHESIS BILATERAL 06/24/2023 8:25 AM EST documented in this encounter Results * Mammography Breast Screening Tomosynthesis Bilateral (06/24/2023 8:25 AM EST) Anatomical Region Laterality Modality Breast Bilateral Mammography 06/24/2023 8:25 AM EST Narrative 06/24/2023 5:22 [place] [id number] Name: CORBY LEYVA Exam Date: 06/24/2023 : 1970 Age 52 Gender: F Physician: TAMELA HORN Facility: [facility] Facility HSV: Outpatient Exam: SHIRLEY SCRN [...] Dahlia Jung 06/24/2023 Thank you for referring CORBY LEYVA to [facility]. Legally authenticated by PAVEL MARRUFO 2023-06-24 12:48:29 Procedure Note Provider, [facility] - 06/24/2023 [facility] [address] [place] [address] Name: CORBY LEYVA Exam Date: 06/24/2023 : 1970 Age 52 Gender: F Physician: TAMELA HORN Facility: [facility] Facility HSV: Outpatient Exam: SHIRLEY SCRN [...] Dahlia Jung 06/24/2023 Thank you for referring CORBY LEYVA to [facility]. Legally authenticated by PAVEL MARRUFO 2023-06-24 12:48:29 Tamela Roger MD IMG BI PROCEDURES Final Result documented in this encounter Visit Diagnoses Not on filedocumented in this encounter Additional Health Concerns Assessment Noted Time A Body Mass Index follow-up plan has been documented for the patient 03/28/2023 8:01 AM EDT documented as of this encounter Care Teams Historical Interpreter Relationship Specialty Start Date End Date Tamela Roger MD [address] [place] [phone] PCP - General 12/23/20 documented as of this encounter
== END 2025-03-17 23:59 | disposition home or self-care (01) ==
LOC: LAB.DROPOF 03-18 13:44
PROVIDERS: PCP Nurse Practitioner Family; Visit Provider Nurse Practitioner Family
DX: G47.33 Obstructive sleep apnea (adult) (pediatric) (principal); Z11.59 Encounter for screening for other viral diseases; Z11.4 Encounter for screening for human immunodeficiency virus [HIV]; R53.83 Other fatigue; M79.10 Myalgia, unspecified site; N95.1 Menopausal and female climacteric states; Z68.31 Body mass index [BMI] 31.0-31.9, adult; I10 Essential (primary) hypertension; E11.9 Type 2 diabetes mellitus without complications; R41.3 Other amnesia
CPT/HCPCS: 80053; 80061; 81001; 82306; 82607; 82728; 83036; 83540; 83550; 83735; 84100; 84156; 84439; 84443; 85025; 86803; 87086; 87088; 87186; 87389

== ENCOUNTER 2025-03-25 12:51 | Outpatient (CLI) | payer BC, SELFPAY ==
--- NOTE | 2025-03-25 13:00 | MM_ITS ---
PROCEDURE INFORMATION: Exam: MG Bilateral Screening 3D Mammography Exam date and time: 03/25/2025 12:56 PM Age: 54 years old Clinical indication: Screening exam. TECHNIQUE: Imaging protocol: Bilateral Screening tomosynthesis and 2D mammography including computer-aided detection (CAD) when performed. COMPARISON: 1. MG SHIRLEY SCRN MAMMO W/CAD BILAT 06/24/2023 8:51 AM 2. MG SHIRLEY SCRN MAMMO W/CAD BILAT 03/12/2022 8:23 AM FINDINGS: MAMMOGRAPHY: Breast composition: There are scattered areas of fibroglandular density. Mass: No suspicious masses. Architectural distortion: None. Calcifications: No suspicious calcifications. Asymmetric density: None. Skin thickening: None. Axillary adenopathy: None. IMPRESSION: No mammographic evidence of malignancy. Annual screening is recommended unless otherwise clinically indicated. ASSESSMENT: BI-RADS Category 1: Negative.
--- OUTSIDE RECORDS SUMMARY | 2025-03-25 13:01 | XMS_ITS | Encounter Summary ---
Author Organization [facility] Address [address] [place] [address] Care Team Providers Care Procurement Manager Name Role Phone Fernanda Donohue APRN Primary Care Provider [phone] Reason for Visit * Reason Comments Med Refill Encounter Details Date Type Department Care Team ([facility] st Contact Info) Description 02/06/2025 Refill [facility] [address] [place] [address] [address] [place] [address] Fernanda Donohue APRN [address] [place] [address] [address]NA [address]ENT[address] [place] [address] Vitamin D deficiency, not otherwise specified Social History Tobacco Use Types Packs/Day Years Used Date Smoking Tobacco: Former Cigarettes Smokeless Tobacco: Never Alcohol Use Standard Drinks/Week Comments Not Currently 0 (1 standard drink = 0.6 oz pur e alcohol) [facility] Utilities Answer Date Recorded In the past 12 months has [facility] [employer], gas, oil, or water [employer] threatened to shut off services in your [...] any time in the past 12 m [facility], were you homeless or living in a senior care (including now)? No 10/10/2024 Depression Answer Date [...] specified documented in this encounter Care Teams Procurement Manager Relationship Specialty Start Date End Date Fernanda Donohue APRN [address] [place] [address] [address]ENTILE [address] [place] [phone] PCP - General Family Medicine 08/19/24 documented as of this encounter
--- OUTSIDE RECORDS SUMMARY | 2025-03-25 13:01 | XMS_ITS | Patient Health Record ---
Author Organization [facility] Address [address] [place] [address] Care Team Providers Care Supplier Quality Engineer Name Role Phone Unsure of Name Primary Care Provider Unavailshailesh fernandez Radha Celis Unavailable [phone] Yoselin Atkins Unavailable [phone] Allergies No Known Allergies Results Component Value Reference Range Notes Rapid Strep Screen (IH) Reviewed date:04/10/2024 10:20:15 AM Interpretation:Positive Performing Lab: Notes/Report: Positive Positive positive Negative - Positive Reason For Referral No Information Medications Medication SIG (Take, Route, Frequency, Duration) Notes Start Date End Date Status Claritin 10 MG 1 tablet Orally Once a day Active Metoprolol Tartrate 100 MG 1 tablet with food Orally once a day Active Simvastatin 10 MG 2 tablets in the jose e ceasar Orally Once a day Active Losartan Potassium 25 MG 1 tablet Orally Once a day Active Immunizations Vaccine Route Administration Date Status Comme nts z2024 Flublok, 18yo & older, PFS (0.5mL Admin) Unknown 04/10/2024 Refused z2024 Flublok, 18yo & older, PFS (0.5mL Admin) Unknown 08/07/2024 Refused Social History Tobacco Use: Social History Observation Description Date Details (start date - stop date) Never Smoker NA - NA Tobacco Control (Standard) Question Answer Notes Tobacco use: Nonsmoker AUDIT-C (Standard) Question Answer Notes Did you have a drink containing alcohol in the p ast year? No Points 0 Interpretation Negative Problems Problem Type SNOMED Code ICD Code Onset Dates Problem Status W/U Status Risk Notes Problem Vasomotor rhinitis (9534043) Vasomotor rhinitis (J30.0) Active confirmed Problem Essential hypertension (I10) Active confirmed Vital Signs Temperature 97.8 degrees Fahrenheit 08/07/2024 Respiratory Rate 18 /min 08/07/2024 Blood pressure diastolic 84 mm Hg 08/07/2024 Height 63 in 08/07/2024 Blood pressure systolic 138 mm Hg 08/07/2024 Weight 160 lbs 08/07/2024 BMI 28.34 kg/m2 08/07/2024 Encounters Encounter Location Date Provider Diagnosis [facility] [address] [place] [address] 04/10/2024 Radha Lawsonjose erenzo Essential hypertension I10 ; Strep throat J02.0 ; Exposure to strep throat Z20.89 ; Sore throat J02.9 ; Overweight E66.3 and BMI 26.0-26.9,adult Z68.26 [address] [facility] [address] [place] [address] 08/07/2024 Yoselinloan Atkins Eustachian tube dysfunction, left H69.82 ; Acute sinusitis J01.90 and Essential hypertension I10 Assessments Encounter Date Diagnosis (ICD Code) Assessment Notes Treatment Notes Treatment Clinical Notes Section Notes 04/10/2024 Strep throat (ICD-10 - J02.0) Complete the entire course of antibiotics as prescribed, even when symptoms have improved, to prevent a relapse of infection and the development of antibiotic resistance. Change toothbrush 24 hours after starting antibiotic for strep throat. 04/10/2024 Essential hypertension (ICD-10 - I10) Regularly follow up with the healthcare provider who manages your high blood pressure. 08/07/2024 Acute sinusitis (ICD-10 - J01.90) Acute Sinusitis: Care Instructions material was published 08/07/2024 Eustachian tube dysfunction, left (ICD-10 - H69.82) Eustachian Tube Problems: Care Instructions material was published, Middle Ear Fluid: Care Instructions material was published 08/07/2024 Essential hypertension (ICD-10 - I10) High Blood Pressure: Care Instructions material was published, Learning About High Blood Pressure material was published 04/10/2024 Exposure to strep throat (ICD-10 - Z20.89) 04/10/2024 Sore throat (ICD-10 - J02.9) 04/10/2024 Overweight (ICD-10 - E66.3) Continue healthy eating and exercise. May follow up with [facility] dietitians via a telehealth visit at [email or web address] to help with dietary changes to lower BMI. 04/10/2024 BMI 26.0-26.9,adult (ICD-10 - Z68.26) Continue healthy eating and exercise. May follow up with [facility] dietitians via a telehealth visit at [email or web address] to help with dietary changes to lower BMI. 04/10/2024 Other Visit summary given to and discussed with patient and/or parent who verbalizes understanding and agreement with plan of care Thank you for your visit. Please look for the satisfaction survey that you will receive via email. We look forward to receiving your feedback regarding your experience at [facility]. 08/07/2024 Other Amoxicillin Ora l Tablet (AMOXICILLIN - ORAL) material was published Plan Of Treatment No Information Insurance Providers Payer Name Payer Address Payer Phone Subscriber Number Group Number Insured Name Patient Relationship to Insured Coverage Start Date Coverage End Date [facility] [address] [place] [address] [id number] Carmen Tripp Self - patient is the insured Medical (General) History Medical History History ICD Code Essential (primary) hypertension I10 Vasomotor rhinitis J30.0 hyperlipidemia Surgical History Surgery Date(Month/Year) left foot surgery 05/2024 dental surgery
--- OUTSIDE RECORDS SUMMARY | 2025-03-25 13:01 | XMS_ITS | Encounter Summary ---
Author Organization [facility] Address [address] [place] [address] Care Team Providers Care Pipe Organ Mechanic Apprentice Name Role Phone Tamela Roger MD Primary Care Provider [phone] Encounter Details Date Type Department Care Team (Late st Contact Info) Description 06/24/2023 Outside Procedure External Location [address] [place] [address] Tamela Roger MD [address] [place] [phone] Social History Tobacco Use Types Packs/Day [...] Description 06/17/2025 10:30 AM EST Office Visit [facility] [place] [address], [address] [place] [address] Nida King, TOOLS ADMINISTRATOR [address] [place] [address] documented as of this encounter Procedures Procedure Name Priority Date/Time Associated Diagnosis Comments MAMMOGRAPHY BREAST SCREENING TOMOSYNTHESIS BILATERAL 06/24/2023 8:25 AM EST documented in this encounter Results * Mammography Breast Screening Tomosynthesis Bilateral (06/24/2023 8:25 AM EST) Anatomical Region Laterality Modality Breast Bilateral Mammography 06/24/2023 8:25 AM EST Narrative 06/24/2023 5:22 [place] [address] Name: CORBY LEYVA Exam Date: 06/24/2023 : 1970 Age 52 Gender: F Physician: TAMELA HORN Facility: [facility] Facility HSV: Outpatient Exam: SHIRLEY SCRN [...] Thank you for referring CORBY LEYVA to [facility]. Legally authenticated by PAVEL MARRUFO 2023-06-24 12:48:29 Procedure Note Provider, [facility] - 06/24/2023 [facility] [address] [place] [address] Name: CORBY LEYVA Exam Date: 06/24/2023 : 1970 Age 52 Gender: F Physician: TAMELA HORN Facility: [facility] Facility HSV: Outpatient Exam: SHIRLEY SCRN [...] Thank you for referring CORBY LEYVA to [facility]. Legally authenticated by PAVEL MARRUFO 2023-06-24 12:48:29 Tamela Roger MD IMG BI PROCEDURES Final Result documented in this encounter Visit Diagnoses Not on filedocumented in this encounter Additional Health Concerns Assessment Noted Time A Body Mass Index follow-up plan has been documented for the patient 03/28/2023 8:01 AM EDT documented as of this encounter Care Teams Pipe Organ Mechanic Apprentice Relationship Specialty Start Date End Date Tamela Roger MD [address] [place] [phone] PCP - General 12/23/20 documented as of this encounter
--- OUTSIDE RECORDS SUMMARY | 2025-03-25 13:01 | XMS_ITS | Encounter Summary ---
Author Organization [facility] Address [address] [place] [address] Care Team Providers Care Bow Rehairer Name Role Phone Tamela Roger MD Primary Care Provider [phone] Encounter Details Date Type Department Care Team (Late Contact Info) Description 03/12/2022 Outside Procedure External Location [address] [place] [address] Tamela Roger MD [address] [place] [phone] Social History Tobacco Use Types Packs/Day [...] Description 06/17/2025 10:30 AM EST Office Visit [facility] [place] [address] [place] [address], [address] [place] [address] Nida King, OIL DISTRIBUTOR [address] [place] [address] documented as of this encounter Procedures Procedure Name Priority Date/Time Associated Diagnosis Comments MAMMOGRAPHY BREAST SCREENING TOMOSYNTHESIS BILATERAL 03/12/2022 8:07 AM EDT documented in this encounter Results * Mammography Breast Screening Tomosynthesis Bilateral (03/12/2022 8:07 AM EDT) Anatomical Region Laterality Modality Breast Bilateral Mammography 03/12/2022 8:07 AM EDT Narrative 03/15/2022 4:48 [place] [address] Name: CORBY LEYVA Exam Date: 03/12/2022 : 1970 Age 51 Gender: F Physician: TAMELA HORN Facility: [facility] Facility HSV: Outpatient Exam: SHIRLEY SCRN [...] Remberto Johnston 03/15/2022 Thank you for referring CORBY LEYVA to [facility]. Legally authenticated by POPE REMBERTO Solo 2022-03-15 16:36:50 Procedure Note Provider, Generic Sharon - 03/15/2022 [place] [address] Name: CORBY LEYVA Exam Date: 03/12/2022 : 1970 Age 51 Gender: F Physician: TAMELA HORN Facility: [facility] Facility HSV: Outpatient Exam: SHIRLEY SCRN [...] Remberto Johnston 03/15/2022 Thank you for referring CORBY LEYVA to [facility]. Legally authenticated by POPE REMBERTO Solo 2022-03-15 16:36:50 Tamela Roger MD IMG BI PROCEDURES Final Result documented in this encounter Visit Diagnoses Not on filedocumented in this encounter Care Teams Bow Rehairer Relationship Specialty Start Date End Date Tamela Roger MD [address] [place] [address] PCP - General 12/23/20 documented as of this encounter
--- OUTSIDE RECORDS SUMMARY | 2025-03-25 13:01 | XMS_ITS | Clinical Summary ---
Author Organization [facility] Address [address] [place] [address] Care Team Providers Care Torpedoman'S Mate Name Role Phone Fernanda Donohue APRN Primary Care Provider [phone] Allergies Active Allergy Reactions Criticality Noted Date [...] 5 Active ergocalciferol (Vitamin D2) 1.25 MG (26848 UT) capsuleIndicati ons:Vitamin D deficiency, not otherwise [...] Team Description 02/06/2025 Refill [facility] Primary [facility] [address] [place] [address] [address] [place] [address] Fernanda Donohue APRN Vitamin D deficiency, not otherwise specified from Last 3 Months Immunizations Immunization Administration [...] Mother Tamica Paez Hearing loss Paternal Grandfather Joe Ca Relation Name Status Comments Hair Simmons Father's Sister Ana Paez Maternal Grandfather Joe Ca Mother Tamica Paez Paternal Grandfather Joe Ca Social History Tobacco Use Types Packs/Day Years Used Date Smoking Tobacco: Former Cigarettes Smokeless Tobacco: Never Tobacco Cessation:Counseling Given: Not Answered Alcohol Use Standard Drinks/Week Comments Not Currently 0 (1 standard drink = 0.6 oz pur e alcohol) [facility] Utilities Answer Date Recorded In the past 12 months has [employer], oil, or water [employer] threatened to shut off services in your [...] any time in the past 12 m [facility], were you homeless or living in a senior living (including now)? No 10/10/2024 Depression Answer Date Recorded PHQ-2 Total Score 0 10/10/2024 Interpersonal Safety Answer Date Record ed How often does anyone, jeb elaine family and friends, physically hurt you? [...] 08/18/2030 08/18/2020, 09/30/2015 COVID-19 Vaccine (3 - 2023- season) 2030 12/16/2020, 11/18/2020 Postponed from 04/12/2024 [...] Performing Organization Information: Site ID: JONATHAN Name: [facility] Address: [address] [place] [phone] Director: Dr. Federico Chicas us Fernanda Donohue APRN LAB BLOOD ORDERABLES Final Res ult [facility] [address] [place] [address], * (ABNORMAL) Comprehensive metabolic panel (10/21/2024 9:56 [...] Performing Organization Information: Site ID: JONATHAN Name: [facility] Address: [address] [place] [phone] Director: Dr. Federico Chicas Fernanda Donohue APRN LAB BLOOD ORDERABLES Final Res ult [facility] [address] [place] [address], * THINPREP IMAGING PAP AND HPV MRNA [...] recommended. CBN, CT(ASCP) 10/20/2024 CT Screening location: [place] [address] => ADDENDUM: New or added information. WEB SERVICES ARCHITECT [facility] Comment: OFC, CT(ASCP) CT Screening Location: [place] [address] REVIEW WEB SERVICES ARCHITECT: [facility] Comment: DXP, CT(ASCP) CT Screening location: [place] [address] COMMENT [facility] Comment: EXPLANATORY NOTE: The Pap [...] Not Detected Not Detected [facility] Comment: Methodology: Assurance Associate-Mediated Amplification This assay detects E6/E7 viral messenger RNA (mRNA) from 14 high-risk HPV types (16,18,31,33,35,39,45,51,52,56,58,59,66,68). Cervical sources are required for HPV testing. If a vaginal source from a patient who has had a total hysterectomy with removal of cervix was submitted, please contact the testing laboratory for alternative testing options. For additional information, please refer to http://education.Netscape/faq/PKZ773m0 (This link if provided for information/ educational purposes only.) Swab Cervical swab / Unknown 10/12/2024 4:12 PM EST 10/13/2024 6:29 AM EST Narrative Resulting Agency Comment Performing Organization Information: Site ID: [place] Name: [id number] Address: [address] [place] [phone] Director: Angel Clark Fernanda Donohue APRN LAB CYTOLOGY ORDERABLES Edited Result - [email or web address] [address], from Last 3 Months or Most Recently Relevant to Health Maintenance Insurance ANTH Care Teams Torpedoman'S Mate Relationship Specialty Start Date End Date Fernanda Donohue APRN [address] [place] [address] [address] [place] [phone] PCP - General Family Medicine 08/19/24
--- OUTSIDE RECORDS SUMMARY | 2025-03-25 13:01 | XMS_ITS | Encounter Summary ---
Author Organization [facility] Address [address] [place] [address] Care Team Providers Care Group Worker Name Role Phone Tamela Roger MD Primary Care Provider [phone] Encounter Details Date Type Department Care Team (Late st Contact Info) Description 02/10/2021 Outside Procedure External Location [address] [place] [address] Tamela Roger MD [address] [place] [phone] Social History Tobacco Use Types Packs/Day [...] Description 06/17/2025 10:30 AM EST Office Visit [facility] [place] [address] [facility] [place], [address] [place] [address] Nida King W, ENTERPRISE SYSTEMS ENGINEER [address] [place] [address] documented as of this encounter Procedures Procedure Name Priority Date/Time Associated Diagnosis Comments MAMMOGRAPHY BREAST SCREENING TOMOSYNTHESIS BILATERAL 02/10/2021 12:44 PM EDT documented in this encounter Results * Mammography Breast Screening Tomosynthesis Bilateral (02/10/2021 12:44 PM EDT) Anatomical Region Laterality Modality Breast Bilateral Mammography 02/10/2021 12:4 4 PM EDT Narrative 02/12/2021 6:44 [place] [address] Name: CARMEN VIEIRA Exam Date: 02/10/2021 : 1970 Age 50 Gender: F Physician: TAMELA HORN Facility: [facility] Facility HSV: Outpatient Exam: SHIRLEY SCRN [...] Thank you for referring CARMEN VIEIRA to [facility]. Legally authenticated by DESTINEE BILLS 2021-02-12 06:30:09 Procedure Note Provider, [place] - 02/12/2021 [address] [place] [address] Name: CARMEN VIEIRA Exam Date: 02/10/2021 : 1970 Age 50 Gender: F Physician: TAMELA HORN Facility: [facility] Facility HSV: Outpatient Exam: SHIRLEY SCRN [...] Thank you for referring CARMEN VIEIRA to [facility]. Legally authenticated by DESTINEE BILLS 2021-02-12 06:30:09 Tamela Roger MD IMG BI PROCEDURES Final Result documented in this encounter Visit Diagnoses Not on filedocumented in this encounter Care Teams Group Worker Relationship Specialty Start Date End Date Tamela Roger MD [address] [place] [phone] PCP - General 12/23/20 documented as of this encounter
--- OUTSIDE RECORDS SUMMARY | 2025-03-25 13:01 | XMS_ITS | Clinical Summary ---
Author Organization [facility] Address [address] [place] [address] Care Team Providers Care Plant Attendant Or Assistant Operator Name Role Phone Tamela Roger MD Primary Care Provider [phone] Allergies Active Allergy Reactions Criticality Noted Date [...] Morning, Reported on 11/13/2024 ergocalciferol 1.25 MG (35163 UT) capsule Take 1 capsule by mouth [...] Date Palpitations 10/23/2021 05/23/2022 Abnormal mammogram 10/20/2019 Immunizations Immunization Administration Dates Next Due Hep [...] Comments Daughter Tamanna Father Maternal Grandfather Joe aC Maternal Grandmother Amie Ca Mother Mother's Sister [...] place to sleep or slept in a senior care (including now)? No 10/12/2023 PHQ-9 Answer Date [...] Description 06/17/2025 10:30 AM EST Office Visit [facility] [place] [address], [address] [place] [address] Nida King, GERIATRIC PERSONAL CARE AIDE [address] [place] [address] Health Maintenance Due Date Last Done Comments [facility]-HIV Screening 1970 [facility]-Hepatitis C Screening 1970 [facility]-Infant/Child/Adol SDOH Screenings 1970 [facility]- SDOH Screenings 1990 [facility]-Adult SDOH Screenings 1990 CT Colonography 2017 Colonoscopy 2017 FIT 2017 FOBT 2017 Sigmoidoscopy 2017 [facility]-Pneumococcal Vaccine: 50+ Years (1 of 1 - PCV) 2022 [facility]-Pap Smear 02/11/2024 02/10/2021, 09/12, 12/12/2015 ARV-BALDB-11 Vaccine ( season) 2024 12/16/2020, 11/18/2020 [facility]-Influenza Vaccine (#1) 2025 07/07/2019 [facility]-Breast Cancer Screening 06/24/202506/12, 03/12/2022, 02/10/2021, Additional history exists [facility]-Depression Screening 11/13/2025 11/13/2024, 11/2024 [facility]-Cervical Cancer Screening 02/10/2026 [facility]-HPV/Cotest 02/10/2026 [...] this topic Medical Devices Implanted Type Area Real Estate Recruiter Device Identifier Shelf Expiration Date Model / Serial / Lot Mtp Plate 0deg Medium Left - Sn/A - [id number] Implanted:Qty: 1 on 05/13/2024 by Eduardo Edge DPM at [facility] Left: [id number] 02 / N/A / Screw 3.5mm Minimonst Erin Shrtthrd Hdless 24mm - Sn/A - [id number] Implanted:Qty: 1 on 05/13/2024 by Eduardo Edge DPM at [facility] Left: [id number] / N/A / Screw 2.7mm R3con Locking Plate 12mm - Sn/A - [id number] Implanted:Qty: 1 on 05/13/2024 by Eduardo Edge DPM at [facility] Left: [id number] 12 / N/A / Screw 2.7mm R3con Locking Plate 18mm - Sn/A - [id number] Implanted:Qty: 1 on 05/13/2024 by Eduardo dEge, DPM at [facility] Left: [id number] 18 / N/A / Screw 2.7mm R3con Locking Plate 16mm - Sn/A - [id number] Implanted:Qty: 1 on 05/13/2024 by Eduardo Edge, DPM at [facility] Left: [employer]-[id number] 16 / N/A / Screw 3.5mm R3con Nonlocking Plate 16mm - Sn/A - [id number] Implanted:Qty: 1 on 05/13/2024 by Eduardo Edge, DPM at [facility] Left: [employer]-[id number] 16 / N/A / Screw 3.5mm R3con Locking Plate 18mm - Sn/A - [id number] Implanted:Qty: 2 on 05/13/2024 by Eduardo Edge, DPM at [facility] Left: [employer]-[id number] 18 / N/A / Procedures Procedure Name Priority Date/Time Associated Diagnosis Comments LAB COLOGUARD COLON CANCER SCREEN Routine 10/31/2023 9:50 PM EDT Screen for colon cancer HEMOGLOBIN A1C Routine 10/16/2023 8:38 AM EST Routine general medical examination at a [facility] care facility MAMMOGRAPHY BREAST SCREENING TOMOSYNTHESIS BILATERAL 06/24/2023 8:25 AM EST PAP TEST - CYTOLOGY Routine 02/10/2021 1 0:52 AM EDT Well woman exam from Last 3 Months or Most Recently Relevant to Health Maintenance Results * Cologuard?? colon cancer screening (10/31/2023 9:50 PM EDT) Cologuard Negative Negative 11/06/2023 6:37 PM EDT [facility] (CLIA #:[id number]) Comment: NEGATIVE TEST RESULT. A negative Cologuard [...] screened with both Cologuard and colonoscopy. (Yumiko Leon. et al, N Engl J Med 2014;370(14):8346-1113) The normal value (reference range) for this assay is negative. COLOGUARD RE-SCREENING RECOMMENDATION: Periodic colorectal cancer screening is an important part of preventive healthcare for asymptomatic individuals at average risk for colorectal cancer. Following a negative Cologuard result, the [place] Cancer Society and U.S. Multi-Society Task Force screening guidelines recommend a Cologuard re-screening interval of 3 years. References: [place] Cancer Society Guideline for Colorectal Cancer Screening: https://www.cancer.org/cancer/bophh-rlwtcy-fidvmm/oobxydpqk-visrjarht-pobjkjx/ac s-rec ommendations.html.; Jesse MONSON, Yesenia MCCORMACK, Yusef FarahK, Colorectal Cancer Screening: Recommendations for Physicians and Patients from the U.S. Multi-Society Task Force on Colorectal Cancer Screening , Am J Gastroenterology 2017; 112:9296-1687. TEST DESCRIPTION: Composite algorithmic analysis of stool [...] screened with both Cologuard and colonoscopy. (Yumiko Leon. et al, N Engl J Med 2014;370(14):7707-2617.) Cologuard may produce a false negative or false positive result (no colorectal cancer or precancerous polyp present at colonoscopy follow up). A negative Cologuard test result does not guarantee the absence of CRC or advanced adenoma (pre-cancer). The current Cologuard screening interval is every 3 years. ([place] Cancer Society and U.S. Multi-Society Task Force). Cologuard performance data in a 10,000 patient pivotal study using colonoscopy as the reference method can be accessed at the following location: www.[employer]/results. Additional description of the Cologuard test process, warnings and precautions can be found at www.InteliCloudrd.com. Stool specimen (specimen) 10/31/2023 9:50 PM EDT 11/02/2023 12:52 PM EDT Tamela Roger MD LAB MOLECULAR DIAGNOSTICS [place] Final Result [facility] (CLIA #:[id number]) [place] [address], * (ABNORMAL) Hemoglobin A1c (10/16/2023 8:38 AM EST) Hemoglobin A1c 5.8(H) <5.7 % 10/16/2023 4:01 PM EST [facility] Blood Venous blood specimen / Unknown Venipuncture / Unknown 10/16/2023 8:38 AM EST 10/16/2023 8:38 AM EST Narrative [facility] - 10/16/2023 4:01 PM EST HA1C Interpretive Data: Diagnosis of Diabetes: Diabetic > or = 6.5% Pre-diabetic 5.7 to 6.4% Non-diabetic < or = 5.6% Glycemic Targets for Type I and Type II Diabetics: Non- Adults <7.0% Adults <6.0% Children and Adolescents <7.5% Source: [place] Diabetes Association. Standards of medical care in diabetes,2017. Diabetes Care.2017:40 (suppl 1):S1-S135. HbA1c assay performed by an ion-exchange chromatography method that is certified traceable to the DCCT. us Tamela Roger MD LAB BLOOD ORDERABLES Final Res ult [facility] [address] [place] [address] * Mammography Breast Screening Tomosynthesis Bilateral (06/24/2023 8:25 AM EST) Anatomical Region Laterality Modality Breast Bilateral Mammography 06/24/2023 8:25 AM EST Narrative 06/24/2023 5:22 [place] [address] Name: CARMEN LEYVA Exam Date: 06/24/2023 : 1970 Age 52 Gender: F Physician: TAMELA HORN Facility: [facility] Facility HSV: Outpatient Exam: SHIRLEY SCRN MAMMO [...] Thank you for referring CARMEN LEYVA to [facility]. Legally authenticated by PAVEL MARRUFO 2023-06-24 12:48:29 Procedure Note Provider, [facility] 06/24/2023 [place] [address] Name: CARMEN LEYVA Exam Date: 06/24/2023 : 1970 Age 52 Gender: F Physician: TAMELA HORN Facility: [facility] Facility HSV: Outpatient Exam: SHIRLEY SCRN MAMMO [...] Thank you for referring CARMEN LEYVA to [facility]. Legally authenticated by PAVEL MARRUFO 2023-06-24 12:48:29 Tamela Roger MD IMG BI PROCEDURES Final Result * Pap Test (02/10/2021 10:52 AM EDT) Case Report Cytology Case: [id number] Authorizing Provider: Tamela Loza MD Collected: 02/10/2021 1052 [facility] Received: 02/10/2021 1056 Medicine First Screen: Tati Pickering, CT Rescreen: BIPIN Chowdary Specimen: ThinPrep Pap Test, Liquid-Based Cervical/Vaginal, CERVICAL/VAGINAL 02/16/2021 2:20 PM EDT [facility] Interpretation NEGATIVE FOR INTRAEPITHELIAL LESION OR MALIGNANCY 02/16/2021 2:20 PM EDT [facility] at 1420 EDT Other Findings Inflammatory change. Shift in aditi suggestive of bacterial vaginosis. 02/16/2021 2:20 PM EDT [facility] Specimen Adequacy Satisfactory for evaluation; endocervical/berry sformation zone component present. Slide scanned and imaged by [employer] ThinPrep Imaging System with manual review of [...] results is suggested (please call Microbiology at [phone] for results). 02/16/2021 2:20 PM EDT [facility] Menstrual Status Cyclic 02/17/20 2:20 PM EDT [facility] History of Hysterectomy Not Applicable 02/16/2021 2:20 PM EDT [facility] Contraceptive History Not Applicable 02/16/2021 2:20 PM EDT [facility] Last Menstrual Period 01/27/2021 02/16/2021 2:20 PM EDT [facility] Screening Type Routine Screen 2020 2:20 PM EDT [facility] High Risk? No 02/16/2021 2:20 PM EDT [facility] HPV Testing Requested? Request HPV Testing Regardless of Pap Test Findings 02/16/2021 2:20 PM EDT [facility] Previous Cancer History No 02/16/2021 2:20 PM EDT [facility] Swab Vaginal and cervical cytologic material / Unknown Non-blood Collection / Unknown 02/10/2021 10:52 AM EDT 02/10/2021 10:56 AM EDT Tamela Roger MD LAB CYTOLOGY ORDERABLES Final Result Performing Organization Address City/State/[facility] Co de Phone Number HEALTHCARE LAB [address] [place] [address] from Last 3 Months or Most Recently Relevant to Health Maintenance Insurance ANTH Care Teams Plant Attendant Or Assistant Operator Relationship Specialty Start Date End Date Tamela Roger MD [address] [place] [phone] PCP - General 12/23/20
== END 2025-03-25 23:59 | disposition home or self-care (01) ==
LOC: RAD 12:52
PROVIDERS: PCP Nurse Practitioner Family; Visit Provider Nurse Practitioner Family
DX: Z12.31 Encounter for screening mammogram for malignant neoplasm of breast (principal); R92.323 Mammographic fibroglandular density, bilateral breasts; Z11.59 Encounter for screening for other viral diseases; Z11.4 Encounter for screening for human immunodeficiency virus [HIV]; R53.83 Other fatigue; M79.10 Myalgia, unspecified site; N95.1 Menopausal and female climacteric states; Z13.1 Encounter for screening for diabetes mellitus; Z68.31 Body mass index [BMI] 31.0-31.9, adult
CPT/HCPCS: 77063; 77067